=== PATIENT | male | born 1975 | race Caucasian/White ===

== ENCOUNTER → 2024-02-17 09:14 | Outpatient (REF) | payer OTHER, SELFPAY | LOC: HWRCS 09:14 | PROVIDERS: ATTENDING PHYSICIAN Internal Medicine Cardiovascular Disease; FAMILY PHYSICIAN Nurse Practitioner Family | DX: I42.9 Cardiomyopathy, unspecified (principal) | CPT/HCPCS: 93306 ==

== ENCOUNTER → 2024-11-23 13:04 | Outpatient (REF) | payer OTHER, SELFPAY | LOC: PAVMRI 13:04 | PROVIDERS: ATTENDING PHYSICIAN Podiatrist Foot & Ankle Surgery; FAMILY PHYSICIAN Nurse Practitioner Family | DX: M66.371 Spontaneous rupture of flexor tendons, right ankle and foot (principal); S86.011A Strain of right Achilles tendon, initial encounter | CPT/HCPCS: 73721 ==